=== PATIENT | female | born 1955 | race Caucasian/White ===

== ENCOUNTER 2017-06-12 04:21 | Inpatient (IN) | payer MEDICARE, OTHER ==
[2017-06-12] MEDS: IV NORMAL SALINE 1000ML BAG 1,000 ML IV ×6 (04:35→15:51)
[2017-06-12 04:54] LABS: BASO % 0 % (0-3); EOS % 12 % (0-3); HEMATOCRIT 25.3 % (36.0-47.0); HEMOGLOBIN 8.4 g/dL (12.0-15.5); LYMPH % 55 % (24-48); MEAN CORPUSCULAR HEMOGLOBIN 29 pg (25-35); MEAN CORPUSCULAR HGB CONC 33 g/dL (31-37); MEAN CORPUSCULAR VOLUME 88 fL (79-100); MONO % 17 % (0-9); PLATELET COUNT 141 x10^3/uL (140-400); RED BLOOD COUNT 2.89 x10^6/uL (3.50-5.40); RED CELL DISTRIBUTION WIDTH 16.7 % (11.5-14.5)
[2017-06-12] MEDS ORDERED: fentaNYL PF VIAL 100 MCG/2 ML VIAL (04:56)
[2017-06-12] MEDS ORDERED: [UNRECOGNIZED DRUG - OTHER] IV (04:58)
[2017-06-12 05:01] LABS: ANION GAP 10 (6-14); BLOOD UREA NITROGEN 29 mg/dL (7-20); BUN/CREATININE RATIO 14 (6-20); CALCIUM 8.3 mg/dL (8.5-10.1); CARBON DIOXIDE 28 mmol/L (21-32); CHLORIDE 100 mmol/L (98-107); CREATININE 2.1 mg/dL (0.6-1.0); GLUCOSE 157 mg/dL (70-99); POTASSIUM 3.5 mmol/L (3.5-5.1); SODIUM 138 mmol/L (136-145)
[2017-06-12 05:07] LABS: ALBUMIN/GLOBULIN RATIO 1.2 (1.0-1.7); ALK PHOS 114 U/L (46-116); ALT (SGPT) 34 U/L (14-59); AST (SGOT) 13 U/L (15-37); TOTAL BILIRUBIN 0.5 mg/dL (0.2-1.0); TOTAL PROTEIN 5.6 g/dL (6.4-8.2)
[2017-06-12 05:08] LABS: WHITE BLOOD COUNT 0.1 x10^3/uL (4.0-11.0)
[2017-06-12] MEDS ORDERED: ACETAMINOPHEN 650 MG SUPP.RECT. (05:09)
[2017-06-12 05:10] LABS: ADD MAN DIFF? YES
[2017-06-12 05:12] LABS: NT-PRO BNP 1644 pg/mL (0-124)
[2017-06-12] MEDS ORDERED: CONTRAST GIVEN MC (05:15)
[2017-06-12] MEDS: IBUPROFEN 400 MG TABLET. PO (05:15)
[2017-06-12] MEDS: ACETAMINOPHEN 500 MG TABLET PO (05:15)
[2017-06-12 05:21] LABS: TROPONINI < 0.017 ng/mL (0.000-0.055)
[2017-06-12 05:25] LABS: LACTIC ACID 4.4 mmol/L (0.4-2.0)
[2017-06-12] MEDS: IOHEXOL 300 MG/ML 100ML VIAL. IV (05:30)
[2017-06-12] MEDS: fentaNYL PF VIAL 100 MCG/2 ML VIAL IV ×6 (05:30→15:30)
[2017-06-12] MEDS: CEFEPIME HCL IV Push 2 GM VIAL. IVP ×2 (05:34→20:46)
[2017-06-12] MEDS: IPRATRPIUM/ALBUTEROL 0.5/2.5MG 3 ML NEBU. NEB (05:43)
[2017-06-12 05:44] LABS: INFLUENZA A PATIENT NEGATIVE (NEGATIVE); INFLUENZA B PATIENT NEGATIVE (NEGATIVE); OBC FLU VALID
[2017-06-12] MEDS ORDERED: CEFEPIME HCL 2 GM in IV DEXTROSE 5% 100 ML IV (06:00)
[2017-06-12] MEDS ORDERED: ONDANSETRON PF 4 MG/2 ML VIAL. IV (06:30)
[2017-06-12] MEDS: NOREPINEPHRIN PREMIX 250 ML IV ×5 (06:34→23:28)
[2017-06-12] MEDS ORDERED: SUCCINYLCHOLINE 200 MG/10 ML VIAL. ×2 (06:57→09:54)
[2017-06-12 07:21] LABS: BASE EXCESS ABG -6 mmol/L (-3-3); HCO3 ABG 22 mmol/L (21-28); PCO2 ABG 55 mmHg (35-46); PH ABG 7.22 (7.35-7.45); PO2 ABG 56 mmHg (65-108); SAT O2 ABG 84 % (92-99)
[2017-06-12] MEDS ORDERED: fentaNYL STANDARD PCA 600 MCG/30 ML PCA.SYRING IV (07:27)
[2017-06-12] MEDS: CLINDAMYCIN 600MG PREMIX 50 ML IV (07:39)
[2017-06-12 08:14] LABS: BILIRUBIN,URINE NEGATIVE (NEG); CLARITY,URINE CLEAR; COLOR,URINE AMBER; GLUCOSE,URINE NEGATIVE (NEG); NITRITE,URINE NEGATIVE (NEG); PH,URINE 5.5; PROTEIN,URINE 100 mg/dL (NEG-TRACE); RBC,URINE 0 /HPF (0-2)
[2017-06-12 08:15] LABS: BACTERIA,URINE FEW /HPF (0-FEW); HYALINE CASTS, URINE FEW /HPF; SQUAMOUS EPITHELIAL CELL,UR FEW /LPF; WBC,URINE 0 /HPF (0-4)
[2017-06-12 08:33] LABS: BASE EXCESS ABG -6 mmol/L (-3-3); HCO3 ABG 23 mmol/L (21-28); PO2 ABG 84 mmHg (65-108); SAT O2 ABG 93 % (92-99)
[2017-06-12] MEDS: VASOPRESSIN 40 UNIT in IV DEXTROSE 5% 100 ML IV ×2 (08:33→19:16)
[2017-06-12 08:35] LABS: PCO2 ABG 70 mmHg (35-46); PH ABG 7.14 (7.35-7.45)
[2017-06-12] MEDS: HYDROCORTISONE SOD SUCC/PF 100 MG/2 ML VIAL. IV ×3 (08:40→22:23)
[2017-06-12 09:01] LABS: LACTIC ACID 3.4 mmol/L (0.4-2.0)
[2017-06-12] MEDS ORDERED: ETOMIDATE 20 MG/10 ML VIAL. IV ×2 (09:53)
[2017-06-12] MEDS ORDERED: NOREPINEPHRIN PREMIX 250 ML IV (10:22)
[2017-06-12] MEDS: VANCOMYCIN 2 GM in IV DEXTROSE 5 %-0.45 % NACL 500 ML IV (12:06)
[2017-06-12] MEDS: EPINEPHrine VIAL 8 MG in IV NORMAL SALINE 250ML 250 ML IV ×2 (12:08→18:40)
[2017-06-12] MEDS: VANCOMYCIN PER PHARMACY MC (12:47)
[2017-06-12 12:53] LABS: NEUT % 16 % (31-73)
[2017-06-12 14:48] LABS: BASE EXCESS ABG -12 mmol/L (-3-3); HCO3 ABG 15 mmol/L (21-28); PCO2 ABG 39 mmHg (35-46); PO2 ABG 69 mmHg (65-108); SAT O2 ABG 91 % (92-99)
[2017-06-12 14:56] LABS: FIO2 ABG 100
[2017-06-12] MEDS ORDERED: SODIUM BICARB ADULT 8.4% 50 MEQ/50 ML DISP.SYRIN. (15:11)
[2017-06-12] MEDS: SODIUM BICARB ADULT 8.4% 50 MEQ/50 ML DISP.SYRIN. IV ×2 (15:29→15:50)
[2017-06-12] MEDS: ACETAMINOPHEN 325 MG SUPP.RECT. PR (20:47)
[2017-06-12 21:13] LABS: MRSA BY PCR Negative (Negative)
[2017-06-13] MEDS: MIDAZOLAM 100MG/100ML PREMIX 100 ML IV (00:20)
[2017-06-13] MEDS: IV NORMAL SALINE 1000ML BAG 1,000 ML IV (03:16)
[2017-06-13] MEDS: NOREPINEPHRIN PREMIX 250 ML IV ×3 (03:50→11:45)
[2017-06-13] MEDS: EPINEPHrine VIAL 8 MG in IV NORMAL SALINE 250ML 250 ML IV ×2 (04:19→11:09)
[2017-06-13] MEDS: HYDROCORTISONE SOD SUCC/PF 100 MG/2 ML VIAL. IV (05:50)
[2017-06-13 06:16] LABS: ADD MAN DIFF? NO
[2017-06-13] MEDS: PIPERACILLIN/TAZOBACTAM 2.25 GM in IV NORMAL SALINE 50ML 50 ML IV ×2 (06:19→12:03)
[2017-06-13 06:30] LABS: BASO % 0 % (0-3); EOS % 8 % (0-3); HEMATOCRIT 24.1 % (36.0-47.0); HEMOGLOBIN 7.7 g/dL (12.0-15.5); LYMPH % 48 % (24-48); MEAN CORPUSCULAR HEMOGLOBIN 28 pg (25-35); MEAN CORPUSCULAR HGB CONC 32 g/dL (31-37); MEAN CORPUSCULAR VOLUME 88 fL (79-100); MONO % 39 % (0-9); NEUT % 5 % (31-73); PLATELET COUNT 66 x10^3/uL (140-400); RED BLOOD COUNT 2.73 x10^6/uL (3.50-5.40)
[2017-06-13 06:32] LABS: WHITE BLOOD COUNT 0.1 x10^3/uL (4.0-11.0)
[2017-06-13 06:52] LABS: ANION GAP 20 (6-14); BLOOD UREA NITROGEN 43 mg/dL (7-20); CALCIUM 6.9 mg/dL (8.5-10.1); CARBON DIOXIDE 14 mmol/L (21-32); CHLORIDE 108 mmol/L (98-107); CREATININE 3.1 mg/dL (0.6-1.0); GFR 15.3; GLUCOSE 138 mg/dL (70-99); POTASSIUM 4.2 mmol/L (3.5-5.1); SODIUM 142 mmol/L (136-145)
[2017-06-13] MEDS: MICAFUNGIN 100 MG in IV DEXTROSE 5% 100 ML IV (06:57)
[2017-06-13 07:30] LABS: MYCOPLASMA PATIENT NEGATIVE (NEGATIVE); NEGATIVE OBC MYCO NEG; POSITIVE OBC MYCO POS
[2017-06-13 08:57] LABS: BASE EXCESS ABG -14 mmol/L (-3-3); HCO3 ABG 13 mmol/L (21-28); PCO2 ABG 30 mmHg (35-46); PH ABG 7.24 (7.35-7.45); PO2 ABG 76 mmHg (65-108); SAT O2 ABG 93 % (92-99)
[2017-06-13 09:00] LABS: FIO2 ABG 100
[2017-06-13] MEDS ORDERED: AZITHRMYCN 500MG IVPB FOR OMNI 250 ML IV (09:00)
[2017-06-13] MEDS ORDERED: AZITHROMYCIN 500 MG in IV NORMAL SALINE 500ML BAG 500 ML IV (09:00)
[2017-06-13] MEDS: VANCOMYCIN PER PHARMACY MC ×2 (09:45→09:48)
[2017-06-13] MEDS: AZITHROMYCIN 500 MG in IV NORMAL SALINE 250ML 250 ML IV (09:51)
[2017-06-13] MEDS: OSELTAMIVIR 30 MG/5 ML ORAL.SUSP. NG (09:52)
[2017-06-13] MEDS ORDERED: VANCOMYCIN 1.5 GM in IV DEXTROSE 5 %-0.45 % NACL 500 ML IV (12:00)
[2017-06-13] MEDS: ACETAMINOPHEN 650 MG/20.3 ML SOLUTION. PEG (12:10)
[2017-06-14 00:10] LABS: LEGIONELLA AG UR Negative (Negative)
== END 2017-06-13 12:41 | disposition expired | DRG 871 ==
LOC: ER 04:21 → 1 WEST ICU 05:10
PROC: 5A1935Z Respiratory Ventilation, Less than 24 Consecutive Hours (ICD-10-PCS; principal; 2017-06-12)
PROC: 0BH17EZ Insertion of Endotracheal Airway into Trachea, Via Natural or Artificial Opening (ICD-10-PCS; 2017-06-12)
DX: A41.9 Sepsis, unspecified organism (principal); J18.9 Pneumonia, unspecified organism; J96.01 Acute respiratory failure with hypoxia; R65.21 Severe sepsis with septic shock; E43 Unspecified severe protein-calorie malnutrition; N17.9 Acute kidney failure, unspecified; D70.2 Other drug-induced agranulocytosis; C83.30 Diffuse large B-cell lymphoma, unspecified site; J44.0 Chronic obstructive pulmonary disease with (acute) lower respiratory infection; D69.6 Thrombocytopenia, unspecified; D64.81 Anemia due to antineoplastic chemotherapy; G89.29 Other chronic pain; I10 Essential (primary) hypertension; F32.9 Major depressive disorder, single episode, unspecified; K21.9 Gastro-esophageal reflux disease without esophagitis; M19.90 Unspecified osteoarthritis, unspecified site; D63.0 Anemia in neoplastic disease; T45.1X5A Adverse effect of antineoplastic and immunosuppressive drugs, initial encounter; W06.XXXA Fall from bed, initial encounter; Y93.89 Activity, other specified; Y92.89 Other specified places as the place of occurrence of the external cause; Y99.8 Other external cause status; Z80.49 Family history of malignant neoplasm of other genital organs; Z87.891 Personal history of nicotine dependence
CPT/HCPCS: 31500; 36415; 36600; 51702; 70450; 71045; 71250; 74018; 74176; 80048; 80053; 81001; 82805; 83605; 83880; 84484; 85025; 86738; 87040; 87449; 87641; 87804; 87804-59; 93005; 94002; 94003; 94640; 96361; 96365; 96367; 96375; 99291-25; J0171; J0456; J0692; J1720; J2248; J2250; J2543; J3010; J3370; J3490; J7030; J7050; J7620